=== PATIENT | male | born 1965 | race Caucasian/White ===

== ENCOUNTER 2017-11-25 08:53 | Inpatient (IN) ==
--- NOTE | 2017-11-24 17:09 | Discharge Summary ---
<Rizwana Gordon E - Last Filed: 11/24/17 17:07> Date of Encounter: 11/24/17 - Discharge Diagnosis (1) Status post total bilateral knee replacement Priority: Primary Status: Acute (2) Arthritis of both knees Priority: Primary Status: Chronic (3) Hypertension Priority: Secondary Status: Chronic Qualifiers: Hypertension type: unspecified Qualified Code(s): I10 - Essential (primary ) hypertension (4) Hypothyroidism Priority: Secondary Status: Acute Qualifiers: Hypothyroidism type: unspecified Qualified Code(s): E03.9 - Hypothyroidism , unspecified (5) GERD (gastroesophageal reflux disease) Priority: Secondary Status: Chronic Qualifiers: Esophagitis presence: esophagitis presence not specified Qualified Code(s) : K21.9 - Gastro-esophageal reflux disease without esophagitis (6) MARGY on CPAP Priority: Secondary Status: Chronic (7) ADHD Priority: Secondary Status: Chronic Qualifiers: Attention deficit-hyperactivity disorder type: unspecified Qualified Code(s ): F90.9 - Attention-deficit hyperactivity disorder, unspecified type (8) Obesity Priority: Secondary Status: Chronic Qualifiers: Obesity type: unspecified obesity type Obesity classification: unspecified obesity classification Serious obesity comorbidity presence: unspecified whether serious comorbidity present Qualified Code(s): E66.9 - Obesity, unspecified - Hospital Course Hospital course: Mr. Fry is a 52 year old male - Time Spent with Patient Total time spent providing and/or coordinating discharge services: - Discharge Medications Home Medications: Celecoxib [Celebrex] 200 mg PO DAILY 09/19/15 [History] Fexofenadine HCl 180 mg PO DAILY 09/19/15 [History] Gabapentin [Neurontin] 100 mg PO BID 09/19/15 [History] Levothyroxine [Synthroid] 100 mcg PO DAILY 09/19/15 [History] Liothyronine Sodium 25 mcg PO DAILY 09/19/15 [History] Lisinopril [Zestril] 20 mg PO DAILY 09/19/15 [History] Metoprolol [Lopressor] 25 mg PO BID 09/19/15 [History] Omeprazole [PriLOSEC] 20 mg PO DAILY 09/19/15 [History] Aspirin Enteric Coated [Aspirin EC] 325 mg PO BID 10 Days #20 tablet. [Rx] Oxycodone HCl 5 mg PO Q6H PRN 7 Days #28 tablet 11/24/17 [Rx] Dextroamphetamine/Amphetamine [Adderall Xr 30 mg Capsule] 30 mg PO DAILY [History] Testosterone Cypionate [Depo-Testosterone] 100 mg IM QMONTH 11/25/17 [History] cloNIDine HCl [Clonidine HCl] 0.2 mg PO DAILY 11/25/17 [History] Allergies/Adverse Reactions: 3 Allergy/AdvReac Type Severity Reaction Status Date / Time No Known Allergies Allergy Verified 11/25/17 09:43 Primary care physician: Blaine Miner DO - Patient Status Disposition: Home Health Service Condition: Good - Discharge Instructions Follow Up With: Blaine Miner DO [Primary Care Provider] - <Eduar Brantley - Last Filed: 11/27/17 06:26> Orders not resulted at time of discharge: Pending orders 11/25/17 01:00 XR knee LT limited 1-2V [XR] Routine XR knee RT limited 1-2V [XR] Routine Hemoglobin and Hematocrit [HEME] Routine Date of Encounter: 11/27/17 Time of Encounter: 06:26 - Discharge Diagnosis (1) Obesity (BMI 35.0-39.9 without comorbidity) Priority: Secondary Status: Chronic (2) Arthritis of both knees Priority: Primary Status: Chronic (3) Hypertension Priority: Secondary Status: Chronic Qualifiers: Hypertension type: unspecified Qualified Code(s): I10 - Essential (primary ) hypertension (4) Hypothyroidism Priority: Secondary Status: Chronic Qualifiers: Hypothyroidism type: unspecified Qualified Code(s): E03.9 - Hypothyroidism , unspecified (5) GERD (gastroesophageal reflux disease) Priority: Secondary Status: Chronic Qualifiers: Esophagitis presence: esophagitis presence not specified Qualified Code(s) : K21.9 - Gastro-esophageal reflux disease without esophagitis (6) MARGY on CPAP Priority: Secondary Status: Chronic (7) ADHD Priority: Secondary Status: Chronic Qualifiers: Attention deficit-hyperactivity disorder type: unspecified Qualified Code(s ): F90.9 - Attention-deficit hyperactivity disorder, unspecified type (8) Status post total bilateral knee replacement Priority: Primary Status: Acute - Hospital Course Hospital course: Mr. Fry is a 52 year old male Status post bilateral total knee replacement The patient had an uneventful postoperative course. They received antibiotics and physical therapy and were discharged in stable condition. There will follow -up in the office in 2 weeks. - Time Spent with Patient Total time spent providing and/or coordinating discharge services: Primary care physician: Blaine Miner DO - Patient Status Functional capacity at discharge: uses cane/walker Overall status at discharge: patient is progressing back to baseline
--- NOTE | 2017-11-24 17:13 | Physician Discharge Referral ---
Home Health/Hosp Referral Info Transfer to: Home Health Attending Provider: Dr. Eduar Brantley - Diagnosis (1) Status post total bilateral knee replacement Priority: Primary Status: Acute (2) Arthritis of both knees Priority: Primary Status: Chronic (3) Hypertension Priority: Secondary Status: Chronic (4) Hypothyroidism Priority: Secondary Status: Acute (5) GERD (gastroesophageal reflux disease) Priority: Secondary Status: Chronic (6) MARGY on CPAP Priority: Secondary Status: Chronic (7) ADHD Priority: Secondary Status: Chronic (8) Obesity Priority: Secondary Status: Chronic - Respiratory Orders Smoking Cessation: Smoking cessation has been advised. For more information, call the [place] Tobacco Quit Line at 0-363-SDZC-NOW. - Dressing/Wound Care Site: Bilateral knees Type of Dressing/Treatments w/Frequency: Opsite placed. Keep dressing intact until first follow up appointment. If greater than 50% saturated, notify office, remove dressing and place appropriate dressing back in place. Leave Zipline intact. Opsite dressing is water resistant, not water-proof. OK to shower, but do not get dressing wet. - Diet/Nutrition Diet/Nutrition Orders: Regular - Activity Activity Orders: Up ad rosie, Ambulate, Chair, Walker Activity: List: Total Knee replacement Precautions x 6 weeks Apply cold therapy wrap 3-6x/day for 20 minutes at a time. Encourage ambulation throughout the day and incentive spirometer 10x/hour. Elevate affected extremity above heart as tolerated. Brace: Wear knee immobilizer at night x 2 weeks. - Services Needed Following services are medically necessary services: Nursing, Home Health Aide, Physical Therapy, Occupational Therapy - Transfer Medications Prescriptions: Aspirin Enteric Coated [Aspirin EC] 325 mg PO BID 10 Days #20 tablet. Oxycodone HCl 5 mg PO Q6H PRN 7 Days #28 tablet PRN Reason: Severe Pain Home Medications: Celecoxib [Celebrex] 200 mg PO DAILY 09/19/15 [History] Dextroamphetamine/Amphetamine [Adderall Xr 30 mg Capsule] 30 mg PO DAILY [History] Fexofenadine HCl 180 mg PO DAILY 09/19/15 [History] Gabapentin [Neurontin] 100 mg PO BID 09/19/15 [History] Levothyroxine [Synthroid] 100 mcg PO DAILY 09/19/15 [History] Liothyronine Sodium 25 mcg PO DAILY 04/11/16 [History] Lisinopril [Zestril] 20 mg PO DAILY 09/19/15 [History] Metoprolol [Lopressor] 25 mg PO BID 09/19/15 [History] Omeprazole [PriLOSEC] 20 mg PO DAILY 09/19/15 [History] predniSONE [PredniSONE] 0 mg PO DAILY #15 tablet 10/11/17 [Rx] Aspirin Enteric Coated [Aspirin EC] 325 mg PO BID 10 Days #20 tablet. [Rx] Oxycodone HCl 5 mg PO Q6H PRN 7 Days #28 tablet 11/24/17 [Rx] Allergies/Adverse Reactions: 3 Allergy/AdvReac Type Severity Reaction Status Date / Time ibuprofen [From Motrin] AdvReac See Verified 11/12/17 09:12 Comments morphine AdvReac See Verified 11/12/17 09:12 Comments Certification: Further, I certify that my clinical findings support that this patient is homebound (i.e. absences from home require considerable and taxing effort and are for medical reasons or [employer] services or infrequently or short duration when for other reasons) because: Homebound Reason: Post-surgery restriction and or conditions limit ability to leave home Attestation: My signature below is to certify that this patient is under my care and that I, or nurse practitioner, or a physician's phlebotomy lab assistant working with me, has a face-to -face encounter with this patient.
--- NOTE | 2017-11-24 17:15 | Physician Discharge Referral ---
ExtendedCare Referral Info Transfer To: [facility] Provider in Charge: Dr. Eduar Brantley - Diagnosis (1) Status post total bilateral knee replacement Priority: Primary Status: Acute (2) Arthritis of both knees Priority: Primary Status: Chronic (3) Hypertension Priority: Secondary Status: Chronic (4) Hypothyroidism Priority: Secondary Status: Chronic (5) GERD (gastroesophageal reflux disease) Priority: Secondary Status: Chronic (6) MARGY on CPAP Priority: Secondary Status: Chronic (7) ADHD Priority: Secondary Status: Chronic (8) Obesity Priority: Secondary Status: Chronic Expected Duration of Placement: Less than 30 days Aware of Diagnosis: Patient Aware of Prognosis: Patient - Transfer Medications Prescriptions: Gabapentin [Neurontin] 300 mg PO TID 7 Days #21 capsule Home Medications: Celecoxib [Celebrex] 200 mg PO DAILY 09/19/15 [History] Fexofenadine HCl 180 mg PO DAILY 09/19/15 [History] Gabapentin [Neurontin] 100 mg PO BID 09/19/15 [History] Levothyroxine [Synthroid] 100 mcg PO DAILY 09/19/15 [History] Liothyronine Sodium 25 mcg PO DAILY 09/19/15 [History] Lisinopril [Zestril] 20 mg PO DAILY 09/19/15 [History] Metoprolol [Lopressor] 25 mg PO BID 09/19/15 [History] Omeprazole [PriLOSEC] 20 mg PO DAILY 09/19/15 [History] Aspirin Enteric Coated [Aspirin EC] 325 mg PO BID 10 Days #20 tablet. [Rx] Oxycodone HCl 5 mg PO Q6H PRN 7 Days #28 tablet 11/24/17 [Rx] Dextroamphetamine/Amphetamine [Adderall Xr 30 mg Capsule] 30 mg PO DAILY [History] Testosterone Cypionate [Depo-Testosterone] 100 mg IM QMONTH 11/25/17 [History] cloNIDine HCl [Clonidine HCl] 0.2 mg PO DAILY 11/25/17 [History] DiphenhydraMINE [Benadryl] 50 mg PO Q6HR PRN capsule 11/27/17 [Rx] Docusate [Colace] 100 mg PO BID capsule 11/27/17 [Rx] Gabapentin [Neurontin] 300 mg PO TID 7 Days #21 capsule 11/27/17 [Rx] Lidocaine Patch [Lidoderm 5% patch] 2 each TP DAILY adh..patch 11/27/17 [Rx] Allergies/Adverse Reactions: 3 Allergy/AdvReac Type Severity Reaction Status Date / Time No Known Allergies Allergy Verified 11/25/17 09:43 - Respiratory Orders Smoking Cessation: Smoking cessation has been advised. For more information, call the [place] Tobacco Quit Line at 0-788-RVPF-NOW. - Ancillary Orders May use pressure relief devices daily prn - Mobility Orders Chair, Ambulate - Rehabiliation Orders Rehab Potential: Good Rehab Orders: Evaluation for Physical Therapy, Evaluation for Occupational Therapy Other: Total Knee replacement Precautions x 6 weeks Apply cold therapy wrap 3-6x/day for 20 minutes at a time. Encourage ambulation throughout the day and incentive spirometer 10x/hour. Elevate affected extremity above heart as tolerated. Brace: Wear knee immobilizer at night x 2 weeks. - Treatments Skin tear care topically daily PRN per policy List/Other: Opsite placed. Keep dressing intact until first follow up appointment. If greater than 50% saturated, notify office, remove dressing and place appropriate dressing back in place. Leave Zipline intact. Opsite dressing is water resistant, not water-proof. OK to shower, but do not get dressing wet. - Diet Orders Regular CERTIFICATION: I certify that the transfer of the above named patient to an Extended Care Facility is necessary for the continuing treatment of the diagnosis listed. The above information is true and accurate reflection of patient's current condition. Confidential - Redisclosure prohibited without a patient's written consent.
[2017-11-25] MEDS ORDERED: *HR* FentaNYL (PF) 100 MCG/2 ML VIAL ONE (08:54)
[2017-11-25] MEDS ORDERED: *HR* Propofol 200 MG/20 ML VIAL IVP ONE (08:55)
[2017-11-25] MEDS ORDERED: *HR* Midazolam HCl 2 MG/2 ML VIAL ONE (08:55)
[2017-11-25] MEDS ORDERED: ROPIVACAINE HCL/PF 0.5% 30 ML VIAL ONE ×2 (08:59→09:27)
[2017-11-25] MEDS ORDERED: Morphine Sulfate/PF 5mg/10mL Vial ONE ×2 (08:59→09:30)
[2017-11-25] MEDS ORDERED: Ondansetron 4 MG/2 ML VIAL ONE (09:00)
[2017-11-25] MEDS ORDERED: Lidocaine -MPF 2% 2 ML VIAL ONE (09:00)
[2017-11-25] MEDS ORDERED: Dexamethasone 4 MG/ML VIAL ONE (09:00)
--- NOTE | 2017-11-25 09:02 | History & Physical Report ---
Date of Encounter: 11/25/17 Time of Encounter: 09:02 24 Hour HP Update - Instructions Instructions: If the History and Physical is less than 30 days old and was completed prior to A.M. admission and or procedure and has NOT been updated on calendar day of procedure please complete this update prior to performing procedure. - Update Patient reports changes in Medical Condition: No Changes in examination, assessment, or condition: No Changes in Medication: No Preop tests/diagnostics Reviewed: Yes Surgery Remains Indicated: Yes Consent for Planned Operative Procedure(s) Verified: Yes - Pre-Operative Checklist Preoperative Checklist Indicated: No Prophylactic Antibiotic Ordered: Yes Is VTE Prophylaxis Indicated?: Yes
[2017-11-25] MEDS ORDERED: CeFAZolin Syr 3,000MG/30 ML 3,000 MG/30 ML SYRINGE IVPB ONE (09:11)
[2017-11-25] MEDS ORDERED: Ringers Solution, Lactated 1,000 ML IVC SCH ×2 (09:15→13:30)
[2017-11-25] MEDS ORDERED: Famotidine 20 MG/2 ML VIAL IVP ONE (09:16)
[2017-11-25] MEDS ORDERED: Pregabalin 75 MG CAPSULE PO ONE (09:16)
[2017-11-25] MEDS ORDERED: Ethanol\\Acetic Acid\\Na Ace\\Ben 1,000 ML IRRIG.SOLN IR ONE (09:21)
--- NOTE | 2017-11-25 09:39 | Anesthesia Evaluation PreOp ---
Date of Encounter: 11/25/17 Time of Encounter: 09:35 - Past History Planned Operation: Bilateral TKA Cardiac History: HTN Pulmonary History: MARGY Dx (CPAP) [employer] MEMBER History: Denies Any Significant HX Other Medical History: Thyroid, Other (Obese) Anesthesia History: No Prior Anesthetic Complications Alcohol Use: none Drug use: none Medications and Allergies Celecoxib [Celebrex] 200 mg PO DAILY 09/19/15 [History] Dextroamphetamine/Amphetamine [Adderall Xr 30 mg Capsule] 30 mg PO DAILY [History] Fexofenadine HCl 180 mg PO DAILY 09/19/15 [History] Gabapentin [Neurontin] 100 mg PO BID 09/19/15 [History] Levothyroxine [Synthroid] 100 mcg PO DAILY 09/19/15 [History] Liothyronine Sodium 25 mcg PO DAILY 09/19/15 [History] Lisinopril [Zestril] 20 mg PO DAILY 09/19/15 [History] Metoprolol [Lopressor] 25 mg PO BID 09/19/15 [History] Omeprazole [PriLOSEC] 20 mg PO DAILY 09/19/15 [History] predniSONE [PredniSONE] 0 mg PO DAILY #15 tablet 10/11/17 [Rx] Aspirin Enteric Coated [Aspirin EC] 325 mg PO BID 10 Days #20 tablet. [Rx] Oxycodone HCl 5 mg PO Q6H PRN 7 Days #28 tablet 11/24/17 [Rx] 3 Allergy/AdvReac Type Severity Reaction Status Date / Time ibuprofen [From Motrin] AdvReac See Verified 11/12/17 09:12 Comments morphine AdvReac See Verified 11/12/17 09:12 Comments - Meds/Allergy Pre-op Review Medications Reviewed: Yes Allergies Reviewed: Yes Beta Blockers on Current Med List: Yes (Took Metoprolol today 0700) Anesthesia Results - Labs Laboratory Tests 11/12/17 11/12/17 09:12 09:12 Hgb 15.2 Hct 45.0 Plt Count 222 Sodium 136 Potassium 4.3 BUN 21 H Creatinine 0.98 - Imaging EKG: report reviewed (SR) Anesthesia Exam O2 Sat Height 1.75 m Height 1.75 m Height 1.75 m Weight 117.48 kg Weight 117.48 kg Weight 117.48 kg O2 Sat by Pulse Oximetry 96 Vital Signs Temp Pulse Resp BP Pulse Ox 98.0 F 63 18 160/107 96 11/25/17 09:31 11/25/17 09:31 11/25/17 09:31 11/25/17 09:31 11/25/17 09:31 Height: 5'9 Weight: 259 lbs NPO (# of Hours): MN Pain Scale: 0 - HEENT Pupil (Motor): Pupils equal, EOMI Mallampati: II Teeth: Normal Oral Opening: Greater than 3 - [employer]BER LOC: Oriented [employer] Motor: Normal RUE, Normal LUE, Normal RLE, Normal LLE, Normal Face [employer]BER Sensory: Normal: RUE, LUE, RLE, LLE, Face - Cardiac Rhythm: Regular Murmur: None JVD: No Carotid Bruit: No - Pulmonary Breath Sounds: bilateral Clear Respiratory Effort: Symmetrical Anesthesia Assess/Plan ASA Score: 2 Modified George Scale for Level of Consciousness: Cooperative, oriented, and tranquil Anesthetic Plan: General, Regional Monitoring Plan: Standard Monitors Recovery Plan: PACU (Discussed GA and PAXTON HINKLE with Adductor Canal Block, agrees to proceed)
[2017-11-25] MEDS ORDERED: *HR* OxyCODONE Immed Rel 5 MG TABLET PO PRN (09:48)
[2017-11-25] MEDS ORDERED: *HR* Labetalol 20 MG/4 ML SYRINGE IVP PRN (09:48)
[2017-11-25] MEDS ORDERED: *HR* FentaNYL (PF) 100 MCG/2 ML VIAL IVP PRN (09:48)
--- NOTE | 2017-11-25 10:32 | Anesthesia Procedures ---
Date of Encounter: 11/25/17 Time of Encounter: 10:15 Procedures: Anesthesia - Epidural/Spinal Patient ID/Chart reviewed: Yes Patient examined: Yes Consent Obtained: Yes Supplemental Oxygen: Nasal Cannula Supplemental Oxygen Rate (L/min): 2 Sedation: Versed (mg): 2 Sedation: Fentanyl (mcg): 50 Site Prep: Aseptic Technique, Sterile prep and drape, 0.5% Chlorhexidine/Alcohol Patient position: upright Local Anesthetic: Lidocaine 1% Amount of Local Anesthetic used: 2 Loading Dose: Other: 2ml 0.5% bup plain, with 200mcg duramorph Blood: No CSF: Yes Paresthesia: No Procedure: vss though out procedure, block per request of surgeon.
[2017-11-25] MEDS ORDERED: EPHEDrine 50 MG/ML VIAL ONE (10:50)
--- NOTE | 2017-11-25 11:18 | Anesthesia Procedures ---
Date of Encounter: 11/25/17 Time of Encounter: 10:20 Procedures: Anesthesia - Nerve Block Procedure Date: 11/25/17 Time: 10:20 Surgical Procedure: bilateral total knees Checklist: Correct Patient Identifier, Correct procedure, History checked Blood Thinner: No Monitor Applied: BP, Pulse Oximetry Supplemental Oxygen via Nasal Cannula (L/min): 2 Sedation: Versed (mg): 2 (sedation used for spinal also) Sedation: Fentanyl (mcg): 50 Indication: Post Op Analgesia Block Type: Other (adductor canal blocks) Catheter placed: No Sterile Technique: Yes Ultrasound used: Yes Anatomy identified: Yes Visual spread of Local: Yes Neuro Stimulation: No Smooth Injection of Local: Yes Pain with Injection of Local: No Prep: Chlorhexadine Needle: 21 x 100 mm Stimuplex Local: Ropivacaine (20ml 0.5% rop with 20mcg precedex added per side. ) Volume (cc): 50 Number of Attempts: 1 Complications: None/effective block Vitals: vss though out procedure. block per request of surgeon
[2017-11-25] MEDS ORDERED: *HR* PHENYLEPHRINE 1,000 MCG/10 ML SYRINGE IVP ONE (11:47)
--- NOTE | 2017-11-25 12:22 | Orthopedic Operative Note ---
Date of procedure: 11/25/17 Pre-op diagnosis: Bilateral knee arthritis Post-op diagnosis: same Procedure: Procedure: Bilateral robotic-assisted Total knee replacement Estimated blood loss: 400 cc Hardware: Metal and polyethylene replacement. Press-Fit [place] Femur: 4 Tibia: 5 PS insert: 11 Patella: 39 Exam Under anesthesia: Left a 4 degree flexion contracture 8 degree varus right knee 4 degree flexion contracture 10 degree varus as calculated by the robot full flexion and no instability Procedural Notes: Grade 4 arthritic changes medial compartment and patellofemoral joint both knees. Operative procedure: The patient was brought to the operating room and placed on the operating room table. After general anesthesia was administered the operative knee was examined. Findings were noted in the exam under anesthesia. Next is a dictation for both knees surgery began with the left knee followed by the right knee any differences will be highlighted. The operative extremity was prepped and draped in sterile surgical fashion. The patient received IV antibiotics prior to skin incision. A standard midline incision was made centered over the patella. The incision was made through the skin and subcutaneous tissue. A medial parapatellar tendon approach was performed. Care was taken to preserve tissue along the medial aspect of the patella. And to protect the patella tendon. The deep MCL was released off the medial tibia. The infra patella fat pad was excised. The patella was everted and cut was made at the level of the insertion of the quadriceps and patella tendon. The patella was sized to a 39 the guide was seated and the lug holes are drilled. Knee was brought into flexion. Patient noted to have grade 4 arthritic changes medial compartment patellofemoral joint both knees Steinmann pins were placed in the tibia and the femur for the tibial and femoral arrays respectively. Checkpoints were also placed in the tibia and the femur for calculation purposes. The knee including the femur and the tibial registered. Osteophytes , ACL and PCL were excised at this point. Extension and flexion were assessed with a valgus stress components were adjusted on the computer to balance the knee. Femoral cuts were made first with robotic assistance, these included the anterior cut posterior cuts chamfer cuts. Tibial cut was then performed with robotic assistance as well. Bone fragments were removed, as well as the medial and lateral meniscus. The size 4 femoral guide was seated box cut was made lug holes are drilled. The size 5 tibial tray was seated and prepared with the fin cutter. Trial reduction with the 11 PS Stefany revealed extension of 0 degree both knees and 5 degrees varus left knee 4 degree varus right knee full flexion. No varus valgus instability. Trial reduction revealed excellent patella tracking. All trial components were removed all bony surfaces were irrigated. The Tibia was seated followed by the femur, The Stefany size 11 was seated and secured patella. Patient had similar findings for motion and stability. The knee was closed by the PA. The knee was then irrigated out with 2 L of pulse irrigation. The extensor mechanism was closed with #2 FiberWire suture and #2 PDS suture. The subcutaneous tissue was then irrigated and closed deep with #1 PDS suture superficially with 0 PDS suture and skin was closed with zip tie The patient was then placed in a sterile dressing and a postoperative brace extubated and transferred to recovery room in stable condition. Anesthesia: spinal Surgeon: Eduar Brantley Was there an producer assistant present: Yes Leadlighter: Rachel Cordova Estimated blood loss (cc): 400 Condition: stable Disposition: PACU
[2017-11-25] MEDS ORDERED: Sennosides 8.6 MG TABLET PO PRN (13:30)
[2017-11-25] MEDS ORDERED: MOM Conc 10 ML UD.LIQ PO PRN (13:30)
[2017-11-25] MEDS ORDERED: Temazepam 15 MG CAPSULE PO PRN (13:30)
[2017-11-25] MEDS ORDERED: Ondansetron 4 MG/2 ML VIAL IVP PRN (13:30)
[2017-11-25] MEDS ORDERED: NON-FORMULARY MEDICATION 1 EACH EACH (Testosterone Cypionate [Depo-Testosterone] 100 MG) IM SCH (13:30)
[2017-11-25] MEDS ORDERED: traMADol 50 MG TABLET PO PRN (13:30)
[2017-11-25] MEDS ORDERED: Naloxone 0.4 MG/ML INJ IVP PRN (13:30)
[2017-11-25 13:35] LABS: Hematocrit 44.2 % (37.5-50.1); Hemoglobin 14.5 g/dL (12.9-16.9)
--- NOTE | 2017-11-25 13:38 | Anesthesia Evaluation Post Op ---
Date of Encounter: 11/25/17 Time of Encounter: 13:30 - Vital Signs Vital Signs: Vital Signs/O2 Sat/Glucose, Most Current Temp Pulse Resp BP Pulse Ox 11/25/17 13:33 97.1 F L 79 16 121/78 92 11/25/17 13:16 97.8 F 86 16 128/87 95 11/25/17 13:06 97.6 F 80 16 128/84 94 11/25/17 12:56 97.6 F 69 16 126/80 96 11/25/17 12:46 97.8 F 88 16 136/86 96 11/25/17 10:30 67 16 129/83 97 11/25/17 10:25 67 16 128/86 98 11/25/17 10:20 75 15 143/91 97 11/25/17 10:15 64 14 154/114 99 11/25/17 10:10 69 13 163/123 98 11/25/17 10:05 57 12 173/119 99 - Lungs Lungs: Clear Ascult./Percussion - Airway Airway: Non-obstructed - Cardiovascular Regular Rate - Mental Status Mental Status: Alert & Oriented, Answers Appropriately - Pain Pain Scale: 0 - Nausea Vomiting Nausea Vomiting: Not Present - Hydration Hydration: Ice chips - Discharge PostOp Status: Transfer Patient to floor
[2017-11-25] MEDS: *HR* Enoxaparin 30 MG/0.3 ML SYRINGE SQ SCH (16:51)
[2017-11-25] MEDS: CeFAZolin Syr 3,000MG/30 ML 3,000 MG/30 ML SYRINGE IVPB SCH (17:44)
[2017-11-25] MEDS ORDERED: *HR* Enoxaparin 30 MG/0.3 ML SYRINGE SQ SCH (18:00)
[2017-11-25] MEDS: Gabapentin 100 MG CAPSULE PO SCH (19:35)
[2017-11-25] MEDS: *HR* OxyCODONE/APAP 5/325 TABLET PO PRN (21:13)
[2017-11-26] MEDS: *HR* OxyCODONE Immed Rel 5 MG TABLET PO PRN ×5 (00:46→17:47)
[2017-11-26] MEDS: CeFAZolin Syr 3,000MG/30 ML 3,000 MG/30 ML SYRINGE IVPB SCH (00:58)
[2017-11-26 02:14] LABS: Hematocrit 41.3 % (37.5-50.1); Hemoglobin 13.8 g/dL (12.9-16.9)
[2017-11-26 02:37] LABS: BUN/Creatinine Ratio 14 (6-26); Blood Urea Nitrogen 14 mg/dL (6-20); Calcium 8.7 mg/dL (8.6-10.3); Carbon Dioxide 28 mEq/L (23-29); Chloride 99 mEq/L (98-107); Glucose 238 mg/dL (70-105); Osmolality,Calculated 288 (280-300); Potassium 3.8 mEq/L (3.5-5.1); Sodium 135 mEq/L (136-145); eGFR For African Americans > 60 (> 60); eGFR For Non-African Americans > 60 (> 60)
[2017-11-26] MEDS: *HR* Enoxaparin 30 MG/0.3 ML SYRINGE SQ SCH ×2 (05:56→15:55)
--- NOTE | 2017-11-26 06:19 | Orthopedics Progress Note ---
Date of Encounter: 11/26/17 Time of Encounter: 06:18 - Assessment and Plan (1) Obesity (BMI 35.0-39.9 without comorbidity) Current Visit: Yes Status: Chronic (2) Arthritis of both knees Current Visit: No Status: Chronic (3) Hypertension Current Visit: No Status: Chronic Qualifiers: Hypertension type: unspecified Qualified Code(s): I10 - Essential (primary ) hypertension (4) Hypothyroidism Current Visit: No Status: Chronic Qualifiers: Hypothyroidism type: unspecified Qualified Code(s): E03.9 - Hypothyroidism , unspecified (5) GERD (gastroesophageal reflux disease) Current Visit: No Status: Chronic Qualifiers: Esophagitis presence: esophagitis presence not specified Qualified Code(s) : K21.9 - Gastro-esophageal reflux disease without esophagitis (6) MARGY on CPAP Current Visit: No Status: Chronic (7) ADHD Current Visit: No Status: Chronic Qualifiers: Attention deficit-hyperactivity disorder type: unspecified Qualified Code(s ): F90.9 - Attention-deficit hyperactivity disorder, unspecified type (8) Status post total bilateral knee replacement Current Visit: No Status: Acute Subjective Interval history: Patient was seen this morning doing well without complaints. Afebrile vital signs stable. Operative extremity: Neurovascularly intact Dressing clean dry and intact Calves nontender Assessment and plan: Continue with postoperative care Hematocrit 41 Objective Vital signs: Vital Signs Temp Pulse Resp BP Pulse Ox 11/26/17 03:57 98.1 F 94 17 121/78 98 11/25/17 23:52 98.1 F 94 17 131/89 95 11/25/17 18:39 97.9 F 108 17 136/93 94 11/25/17 15:41 97.6 F 90 16 127/88 95 11/25/17 14:27 97.4 F L 80 16 120/78 94 11/25/17 13:33 97.1 F L 79 16 121/78 92 11/25/17 13:16 97.8 F 86 16 128/87 95 11/25/17 13:06 97.6 F 80 16 128/84 94 11/25/17 12:56 97.6 F 69 16 126/80 96 11/25/17 12:46 97.8 F 88 16 136/86 96 11/25/17 10:30 67 16 129/83 97 11/25/17 10:25 67 16 128/86 98 11/25/17 10:20 75 15 143/91 97 11/25/17 10:15 64 14 154/114 99 11/25/17 10:10 69 13 163/123 98 11/25/17 10:05 57 12 173/119 99 11/25/17 09:31 98.0 F 63 18 160/107 96 Intake and Output 11/25/17 11/25/17 11/26/17 15:59 23:59 07:59 Intake Total 0 / 0 270 / 270 Output Total 400 / 400 2375 / 2375 Balance -400 / -400 -2105 / -2105 Intake: IV Fluids 30 / 30 Ancef Syringe 3,000 MG/30 ML 3, 30 / 30 000 mg In 30 ml @ 200 mls/hr IVPB Q8HR [facility] Rx#:[id number] Oral 0 / 0 240 / 240 Output: Estimated Blood Loss 400 / 400 Straight Cath 2375 / 2375 Other: Meal Dinner Percent of Meal Consumed 100% Weight 117.48 kg - Labs CBC & BMP: 11/26/17 01:33 11/26/17 01:33 Labs: Abnormal lab results Sodium 135 mEq/L (136-145) L 11/26/17 01:33 Glucose 238 mg/dL (70-105) H 11/26/17 01:33 - VTE Documentation of Mechanical Device: Venous foot pump, device Consult Discharge Plan - Plan Referrals: Blaine Miner DO [Primary Care Provider] -
[2017-11-26] MEDS: Loratadine 10 MG TABLET PO SCH (08:18)
[2017-11-26] MEDS: (Dextroamphetamine/Amphetamine [Adderall Xr 30 Mg Cap PO SCH (08:18)
[2017-11-26] MEDS: cloNIDine HCl 0.1 MG TABLET PO SCH (08:18)
[2017-11-26] MEDS: Lisinopril 20 MG TABLET PO SCH (08:18)
[2017-11-26] MEDS: Gabapentin 100 MG CAPSULE PO SCH (08:18)
[2017-11-26] MEDS ORDERED: tiZANidine 4 MG TABLET PO PRN (10:05)
--- NOTE | 2017-11-26 11:34 | Event Note ---
Date of Encounter: 11/26/17 Time of Encounter: 11:32 PCR- POD#1 status post bilateral total knee replacement Brantley 11/25/17 PCR - Patient seen at bedside. Labwork and medications reviewed. H/H 13.8/31.3 Vital signs reviewed Pain control: Inadequate - patient taking oxycodone and tramadol without relief. Tizanidine and Lidoderm were added this morning. Per patient these have not provided adequate relief yet. Patient also taking Gabapentin 100mg BID. Gabapentin increased to 300mg TID and Toradol dosing added. Participating in PT. Recommending inpt rehab. All questions and concerns addressed. Educated on use of incentive spirometer, ambulation, and hydration. Patient educated on post-operative restrictions and care. Addressed: 11/26 Patient continues to require straight catheter - increased frequency of catherization for patient relief. Consider adding Tamsulosin. 11/27: per records patient has not required catheterization for urination for appx 24 hours. voiding independently D/C plan: Inpt rehab when auth obtained
[2017-11-26] MEDS: Ketorolac 30 MG/ML VIAL IVP PRN ×2 (13:40→22:21)
[2017-11-26] MEDS: Gabapentin 300 MG CAPSULE PO SCH ×2 (15:55→19:57)
[2017-11-27] MEDS: *HR* OxyCODONE Immed Rel 5 MG TABLET PO PRN ×4 (01:07→19:38)
[2017-11-27 01:22] LABS: Hematocrit 35.8 % (37.5-50.1); Hemoglobin 11.8 g/dL (12.9-16.9)
[2017-11-27 01:42] LABS: BUN/Creatinine Ratio 15 (6-26); Blood Urea Nitrogen 13 mg/dL (6-20); Calcium 8.4 mg/dL (8.6-10.3); Carbon Dioxide 25 mEq/L (23-29); Chloride 100 mEq/L (98-107); Glucose 204 mg/dL (70-105); Osmolality,Calculated 280 (280-300); Potassium 3.8 mEq/L (3.5-5.1); Sodium 132 mEq/L (136-145); eGFR For African Americans > 60 (> 60); eGFR For Non-African Americans > 60 (> 60)
[2017-11-27] MEDS: *HR* OxyCODONE/APAP 5/325 TABLET PO PRN ×3 (03:09→13:35)
[2017-11-27] MEDS: *HR* Enoxaparin 30 MG/0.3 ML SYRINGE SQ SCH ×2 (05:50→16:03)
--- NOTE | 2017-11-27 06:27 | Orthopedics Progress Note ---
Date of Encounter: 11/27/17 Time of Encounter: 06:26 - Assessment and Plan (1) Obesity (BMI 35.0-39.9 without comorbidity) Current Visit: Yes Status: Chronic (2) Arthritis of both knees Current Visit: No Status: Chronic (3) Hypertension Current Visit: No Status: Chronic Qualifiers: Hypertension type: unspecified Qualified Code(s): I10 - Essential (primary ) hypertension (4) Hypothyroidism Current Visit: No Status: Chronic Qualifiers: Hypothyroidism type: unspecified Qualified Code(s): E03.9 - Hypothyroidism , unspecified (5) GERD (gastroesophageal reflux disease) Current Visit: No Status: Chronic Qualifiers: Esophagitis presence: esophagitis presence not specified Qualified Code(s) : K21.9 - Gastro-esophageal reflux disease without esophagitis (6) MARGY on CPAP Current Visit: No Status: Chronic (7) ADHD Current Visit: No Status: Chronic Qualifiers: Attention deficit-hyperactivity disorder type: unspecified Qualified Code(s ): F90.9 - Attention-deficit hyperactivity disorder, unspecified type (8) Status post total bilateral knee replacement Current Visit: No Status: Acute Subjective Interval history: Patient was seen this morning doing well without complaints. Afebrile vital signs stable. Operative extremity: Neurovascularly intact Dressing clean dry and intact Calves nontender Assessment and plan: Continue with postoperative care Hematocrit 35 discharged today Objective Vital signs: Vital Signs Temp Pulse Resp BP Pulse Ox 11/27/17 00:28 98.3 F 98 14 158/96 98 11/26/17 19:44 98.1 F 93 16 146/92 98 11/26/17 15:46 98 F 98 22 130/85 97 11/26/17 11:24 98.5 F 82 20 142/90 96 11/26/17 07:33 98.3 F 96 18 138/86 96 Intake and Output 11/26/17 11/26/17 11/27/17 15:59 23:59 07:59 Intake Total 600 / 600 120 / 120 400 / 400 Output Total 600 / 600 400 / 400 275 / 275 Balance 0 / 0 -280 / -280 125 / 125 Intake: Oral 600 / 600 120 / 120 400 / 400 Output: Urine 150 / 150 400 / 400 275 / 275 Straight Cath 450 / 450 Other: Meal Lunch Dinner Percent of Meal Consumed 100% 100% Stool Size Moderate Stool Consistency formed Stool Characteristics Normal for Patient # Voids 1 1 - Labs CBC & BMP: 11/27/17 01:00 11/27/17 01:00 Labs: Abnormal lab results Hgb 11.8 g/dL (12.9-16.9) L D 11/27/17 01:00 Hct 35.8 % (37.5-50.1) L 11/27/17 01:00 Sodium 132 mEq/L (136-145) L 11/27/17 01:00 Glucose 204 mg/dL (70-105) H 11/27/17 01:00 Calcium 8.4 mg/dL (8.6-10.3) L 11/27/17 01:00 - VTE Documentation of Mechanical Device: Venous foot pump, device Consult Discharge Plan - Plan Referrals: Blaine Miner DO [Primary Care Provider] -
[2017-11-27] MEDS: Loratadine 10 MG TABLET PO SCH (08:27)
[2017-11-27] MEDS: Lisinopril 20 MG TABLET PO SCH (08:27)
[2017-11-27] MEDS: cloNIDine HCl 0.1 MG TABLET PO SCH (08:28)
[2017-11-27] MEDS: Gabapentin 300 MG CAPSULE PO SCH ×2 (08:28→16:03)
[2017-11-27] MEDS: (Dextroamphetamine/Amphetamine [Adderall Xr 30 Mg Cap PO SCH (08:40)
[2017-11-27 15:45] VITALS: BP 143/89
--- NOTE | 2017-11-27 17:47 | Event Note ---
Date of Encounter: 11/27/17 Time of Encounter: 11:40 PCR- POD#2 status post bilateral total knee replacement Brantley 11/25/17 PCR - Patient seen at bedside. Labwork and medications reviewed. 11/26: H/H 13.8/31.3 11/27: H/H 11.8/35.8 Vital signs reviewed - mild increase in BP today (11/27) - patient appears anxious re: discharge and getting medication for pain relief though he states his pain is much improved. Pain control: Inadequate - patient taking oxycodone and tramadol without relief. Tizanidine and Lidoderm were added 11/26. 11/26 Gabapentin increased to 300mg TID from 100mg BID and Toradol dosing added. Patient states Toradol was very helpful - will transition to PO Ibuprofen. Participating in PT. Recommending inpt rehab. All questions and concerns addressed. Educated on use of incentive spirometer, ambulation, and hydration. Patient educated on post-operative restrictions and care. Addressed: 11/26 Patient continues to require straight catheter - increased frequency of catherization for patient relief. Consider adding Tamsulosin. 11/27: per records patient has not required catheterization for urination for appx 24 hours. voiding independently D/C plan: Inpt rehab today to [facility].
== END 2017-11-27 19:45 | disposition home health service (06) | DRG 302 ==
LOC: SAMDAY 08:53 → 3NENU 13:36
PROVIDERS: ADMIT Orthopaedic Surgery; ATTEND Orthopaedic Surgery

== ENCOUNTER 2021-03-10 21:26 | Inpatient (IN) ==
[2021-03-11] MEDS ORDERED: Naloxone 0.4 MG/ML INJ IVP PRN (03:43)
[2021-03-11] MEDS ORDERED: D5% in Water 1,000 ML IVC PRN (04:18)
[2021-03-11] MEDS ORDERED: *HR* Dextrose 50 % in Water (Syg) 50 ML SYRINGE IVP PRN (04:18)
[2021-03-11] MEDS ORDERED: Dextrose Gel 15 GM/37.5 ML TUBE PO PRN ×2 (04:18)
[2021-03-11] MEDS: Ipratropium 1 PUFF INHALER IH SCH ×4 (04:24→22:51)
[2021-03-11] MEDS: *HR* Enoxaparin 40 MG/0.4 ML SYRINGE SQ SCH (05:35)
[2021-03-11] MEDS: Insulin LISPRO 300 UNITS/3 ML VIAL SUBQ SCH ×4 (08:13→20:40)
[2021-03-11 08:32] LABS: Basophils % 0.2 %; Hematocrit 42.1 % (37.5-50.1); Hemoglobin 14.3 g/dL (12.9-16.9); Immature Granulocytes % 0.8 % (0-4); Lymphocytes # 0.5 K/mcL (0.6-4.6); Lymphocytes % 8.4 %; Mean Corpuscular Hemoglobin 29.4 pg (28.0-33.3); Mean Corpuscular Volume 86.4 fL (83.0-100.0); Mean Platelet Volume 11.3 fL (9.4-12.4); Monocytes # 0.6 K/mcL (0.0-1.3); Monocytes % 9.4 %; Neutrophils # 4.9 K/mcL (1.6-8.9); Platelet Count 202 K/mcL (140-400); Red Blood Count 4.87 M/mcL (4.19-5.50); Red Cell Distribution Width 14.2 % (11.5-14.5); Segmented Neutrophils % 81.2 %; White Blood Count 6.1 K/mcL (4.3-11.1)
[2021-03-11 08:52] LABS: Alanine Aminotransferase 57 Units/L (7-52); Albumin 3.8 g/dL (3.5-5.7); Albumin/Globulin Ratio 1.2 (1.1-2.2); Alkaline Phosphatase 76 Units/L (34-104); Aspartate Amino Transferase 43 Units/L (13-39); BUN/Creatinine Ratio 18 (6-26); Bilirubin,Total 0.7 mg/dL (0.3-1.0); Blood Urea Nitrogen 15 mg/dL (6-20); C-Reactive Protein 57 mg/L (Less than 10); Carbon Dioxide 24 mEq/L (23-29); Chloride 99 mEq/L (98-107); Globulin 3.2 g/dL (2.4-3.5); Glucose 223 mg/dL (70-105); Lactate Dehydrogenase 284 Units/L (140-271); Osmolality,Calculated 284 (280-300); Potassium 3.8 mEq/L (3.5-5.1); Sodium 133 mEq/L (136-145); eGFR For African Americans > 60 (> 60); eGFR For Non-African Americans > 60 (> 60)
[2021-03-11] MEDS ORDERED: Dexamethasone Sodium Phos/PF 10 MG/ML VIAL IVP SCH (09:00)
[2021-03-11] MEDS ORDERED: Insulin DETEMIR 100 UNIT/ML X5UNITS SUBQ SCH (09:00)
[2021-03-11 09:21] LABS: Ferritin 1477 ng/mL (20-250)
[2021-03-11] MEDS ORDERED: Remdesivir 200 MG in 0.9 % Sodium Chloride 100 ML IVPB ONE (11:00)
[2021-03-11] MEDS ORDERED: Isovue-370 500 ML BOTTLE IVP ONE (13:12)
[2021-03-11] MEDS ORDERED: Acetaminophen 325 MG TABLET PO PRN (13:17)
[2021-03-11] MEDS: Insulin DETEMIR 100 UNIT/ML X5UNITS SUBQ SCH (20:32)
[2021-03-11] MEDS ORDERED: Insulin LISPRO 300 UNITS/3 ML VIAL SUBQ SCH (21:00)
[2021-03-12 03:24] LABS: Basophils % 0.1 %; Hematocrit 41.5 % (37.5-50.1); Hemoglobin 13.9 g/dL (12.9-16.9); Lymphocytes # 0.6 K/mcL (0.6-4.6); Lymphocytes % 6.8 %; Mean Corpuscular HGB Conc 33.5 g/dL (31.6-35.5); Mean Corpuscular Volume 86.5 fL (83.0-100.0); Mean Platelet Volume 11.6 fL (9.4-12.4); Monocytes # 0.7 K/mcL (0.0-1.3); Monocytes % 8.1 %; Neutrophils # 7.4 K/mcL (1.6-8.9); Platelet Count 232 K/mcL (140-400); Red Cell Distribution Width 14.1 % (11.5-14.5); White Blood Count 8.8 K/mcL (4.3-11.1)
[2021-03-12] MEDS: Ipratropium 1 PUFF INHALER IH SCH ×4 (03:44→20:30)
[2021-03-12 03:53] LABS: Alanine Aminotransferase 71 Units/L (7-52); Albumin 3.8 g/dL (3.5-5.7); Albumin/Globulin Ratio 1.3 (1.1-2.2); Alkaline Phosphatase 74 Units/L (34-104); Aspartate Amino Transferase 45 Units/L (13-39); BUN/Creatinine Ratio 23 (6-26); Bilirubin,Total 0.7 mg/dL (0.3-1.0); Blood Urea Nitrogen 17 mg/dL (6-20); Calcium 8.8 mg/dL (8.6-10.3); Carbon Dioxide 22 mEq/L (23-29); Chloride 102 mEq/L (98-107); Glucose 242 mg/dL (70-105); Osmolality,Calculated 290 (280-300); Potassium 3.7 mEq/L (3.5-5.1); Sodium 135 mEq/L (136-145); Total Protein 6.8 g/dL (6.4-8.9); eGFR For African Americans > 60 (> 60); eGFR For Non-African Americans > 60 (> 60)
[2021-03-12] MEDS: *HR* Enoxaparin 40 MG/0.4 ML SYRINGE SQ SCH (05:51)
[2021-03-12] MEDS: Insulin LISPRO 300 UNITS/3 ML VIAL SUBQ SCH ×4 (07:40→20:34)
[2021-03-12] MEDS: Insulin DETEMIR 100 UNIT/ML X5UNITS SUBQ SCH ×2 (07:41→20:36)
[2021-03-12] MEDS: Remdesivir 100 MG in 0.9 % Sodium Chloride 100 ML IVPB SCH (12:38)
[2021-03-13 02:25] LABS: Basophils % 0.4 %; Hematocrit 41.4 % (37.5-50.1); Hemoglobin 13.8 g/dL (12.9-16.9); Lymphocytes # 0.8 K/mcL (0.6-4.6); Lymphocytes % 6.6 %; Mean Corpuscular HGB Conc 33.3 g/dL (31.6-35.5); Mean Corpuscular Hemoglobin 29.1 pg (28.0-33.3); Mean Corpuscular Volume 87.2 fL (83.0-100.0); Mean Platelet Volume 11.2 fL (9.4-12.4); Monocytes # 1.2 K/mcL (0.0-1.3); Monocytes % 10.8 %; Neutrophils # 9.2 K/mcL (1.6-8.9); Platelet Count 261 K/mcL (140-400); Red Blood Count 4.75 M/mcL (4.19-5.50); Segmented Neutrophils % 80.2 %; White Blood Count 11.4 K/mcL (4.3-11.1)
[2021-03-13 02:43] LABS: BUN/Creatinine Ratio 28 (6-26); Blood Urea Nitrogen 21 mg/dL (6-20); Calcium 8.6 mg/dL (8.6-10.3); Carbon Dioxide 24 mEq/L (23-29); Chloride 105 mEq/L (98-107); Glucose 179 mg/dL (70-105); Osmolality,Calculated 291 (280-300); Potassium 3.8 mEq/L (3.5-5.1); Sodium 137 mEq/L (136-145); eGFR For African Americans > 60 (> 60); eGFR For Non-African Americans > 60 (> 60)
[2021-03-13] MEDS: Ipratropium 1 PUFF INHALER IH SCH ×4 (04:03→20:57)
[2021-03-13] MEDS: *HR* Enoxaparin 40 MG/0.4 ML SYRINGE SQ SCH ×2 (06:44→19:49)
[2021-03-13] MEDS: Insulin LISPRO 300 UNITS/3 ML VIAL SUBQ SCH ×4 (08:08→19:50)
[2021-03-13] MEDS: Insulin DETEMIR 100 UNIT/ML X5UNITS SUBQ SCH ×2 (08:13→19:49)
[2021-03-13 09:01] LABS: C-Reactive Protein 15 mg/L (Less than 10)
[2021-03-13 10:18] LABS: Estimated Average Glucose 163 mg/dl; Hemoglobin A1C 7.3 %
[2021-03-13] MEDS: Remdesivir 100 MG in 0.9 % Sodium Chloride 100 ML IVPB SCH (11:04)
[2021-03-13] MEDS: Melatonin 3 MG TABLET PO PRN (23:48)
[2021-03-14 03:26] LABS: Fibrinogen 388 mg/dL (169-393)
[2021-03-14 03:29] LABS: D-Dimer 253 ng/mLFEU (0-500)
[2021-03-14 03:40] LABS: Alanine Aminotransferase 96 Units/L (7-52); Albumin 3.4 g/dL (3.5-5.7); Albumin/Globulin Ratio 1.4 (1.1-2.2); Alkaline Phosphatase 65 Units/L (34-104); Aspartate Amino Transferase 34 Units/L (13-39); BUN/Creatinine Ratio 30 (6-26); Bilirubin,Total 0.6 mg/dL (0.3-1.0); Blood Urea Nitrogen 22 mg/dL (6-20); Calcium 8.5 mg/dL (8.6-10.3); Carbon Dioxide 25 mEq/L (23-29); Chloride 105 mEq/L (98-107); Globulin 2.5 g/dL (2.4-3.5); Glucose 197 mg/dL (70-105); Lactate Dehydrogenase 280 Units/L (140-271); Osmolality,Calculated 291 (280-300); Potassium 4.1 mEq/L (3.5-5.1); Sodium 136 mEq/L (136-145); Total Protein 5.9 g/dL (6.4-8.9); eGFR For African Americans > 60 (> 60); eGFR For Non-African Americans > 60 (> 60)
[2021-03-14] MEDS: Ipratropium 1 PUFF INHALER IH SCH ×4 (03:52→20:06)
[2021-03-14 04:15] LABS: Ferritin 1095 ng/mL (20-250)
[2021-03-14] MEDS: Insulin LISPRO 300 UNITS/3 ML VIAL SUBQ SCH ×4 (08:28→20:25)
[2021-03-14] MEDS: *HR* Enoxaparin 40 MG/0.4 ML SYRINGE SQ SCH ×2 (08:30→20:24)
[2021-03-14] MEDS: amLODIPine 5 MG TABLET PO SCH (08:31)
[2021-03-14] MEDS: Insulin DETEMIR 100 UNIT/ML X5UNITS SUBQ SCH ×2 (08:32→20:25)
[2021-03-14] MEDS: Lisinopril-HCTZ 20-12.5mg TABLET PO SCH (08:35)
[2021-03-14] MEDS: DEXTROAMPHETAMINE PO SCH (09:02)
[2021-03-14] MEDS: Fluticasone Propionate Nasal 50 MCG/SPRAY BOTTLE NS SCH (09:02)
[2021-03-14] MEDS: AMPHETAMINE PO SCH (09:02)
[2021-03-14] MEDS: Remdesivir 100 MG in 0.9 % Sodium Chloride 100 ML IVPB SCH (11:06)
[2021-03-14] MEDS: Melatonin 3 MG TABLET PO PRN (20:24)
[2021-03-15 02:09] LABS: Alanine Aminotransferase 80 Units/L (7-52); Albumin 3.6 g/dL (3.5-5.7); Albumin/Globulin Ratio 1.4 (1.1-2.2); Alkaline Phosphatase 66 Units/L (34-104); Aspartate Amino Transferase 19 Units/L (13-39); BUN/Creatinine Ratio 29 (6-26); Bilirubin,Total 0.6 mg/dL (0.3-1.0); Blood Urea Nitrogen 25 mg/dL (6-20); Calcium 8.8 mg/dL (8.6-10.3); Carbon Dioxide 27 mEq/L (23-29); Chloride 102 mEq/L (98-107); Globulin 2.5 g/dL (2.4-3.5); Glucose 207 mg/dL (70-105); Osmolality,Calculated 292 (280-300); Potassium 4.3 mEq/L (3.5-5.1); Sodium 136 mEq/L (136-145); Total Protein 6.1 g/dL (6.4-8.9); eGFR For African Americans > 60 (> 60); eGFR For Non-African Americans > 60 (> 60)
[2021-03-15] MEDS: Ipratropium 1 PUFF INHALER IH SCH ×5 (03:45→20:25)
[2021-03-15] MEDS: Insulin LISPRO 300 UNITS/3 ML VIAL SUBQ SCH ×4 (07:49→20:27)
[2021-03-15] MEDS: Fluticasone Propionate Nasal 50 MCG/SPRAY BOTTLE NS SCH (08:00)
[2021-03-15] MEDS: *HR* Enoxaparin 40 MG/0.4 ML SYRINGE SQ SCH ×2 (08:00→20:27)
[2021-03-15] MEDS: amLODIPine 5 MG TABLET PO SCH (08:00)
[2021-03-15] MEDS: Lisinopril-HCTZ 20-12.5mg TABLET PO SCH (08:00)
[2021-03-15] MEDS: Insulin DETEMIR 100 UNIT/ML X5UNITS SUBQ SCH ×2 (08:01→20:27)
[2021-03-15] MEDS: AMPHETAMINE PO SCH (08:02)
[2021-03-15] MEDS: DEXTROAMPHETAMINE PO SCH (08:02)
[2021-03-15] MEDS: Remdesivir 100 MG in 0.9 % Sodium Chloride 100 ML IVPB SCH (10:44)
[2021-03-15] MEDS: Melatonin 3 MG TABLET PO PRN (20:33)
[2021-03-16] MEDS: Ipratropium 1 PUFF INHALER IH SCH ×4 (04:05→20:17)
[2021-03-16 04:24] LABS: Albumin 2.4 g/dL (3.5-5.7); Albumin/Globulin Ratio 0.7 (1.1-2.2); Bilirubin,Direct 0.1 mg/dL (0.0-0.2); Bilirubin,Indirect 0.3 mg/dL (0.0-1.0); Bilirubin,Total 0.4 mg/dL (0.3-1.0); Globulin 3.5 g/dL (2.4-3.5); Total Protein 5.9 g/dL (6.4-8.9)
[2021-03-16 07:33] VITALS: BP 170/100
[2021-03-16] MEDS: Lisinopril-HCTZ 20-12.5mg TABLET PO SCH (07:50)
[2021-03-16] MEDS: *HR* Enoxaparin 40 MG/0.4 ML SYRINGE SQ SCH (07:50)
[2021-03-16] MEDS: amLODIPine 5 MG TABLET PO SCH (07:50)
[2021-03-16] MEDS: Insulin DETEMIR 100 UNIT/ML X5UNITS SUBQ SCH (07:51)
[2021-03-16] MEDS: Fluticasone Propionate Nasal 50 MCG/SPRAY BOTTLE NS SCH (07:51)
[2021-03-16] MEDS: DEXTROAMPHETAMINE PO SCH (07:51)
[2021-03-16] MEDS: AMPHETAMINE PO SCH (07:51)
[2021-03-16] MEDS: Insulin LISPRO 300 UNITS/3 ML VIAL SUBQ SCH ×2 (07:51→12:36)
[2021-03-16 11:42] VITALS: PULSE 67; TEMP 98.9
[2021-03-16 15:37] VITALS: O2SAT 92
== END 2021-03-16 19:00 | disposition home or self-care (01) | DRG 137 ==
LOC: 3BNU → SUATTDRO 03-11 03:30 → OBSVTOIN 03-11 03:30 → 2NNU 03-11 14:22 → 3NENU 03-16 09:43
PROVIDERS: ADMIT Family Medicine; ATTEND Internal Medicine